=== PATIENT | male | born 1980 | race African-American/Black ===

== ENCOUNTER 2019-05-11 14:56 | Emergency (ER) | payer SELFPAY ==
[~2019-05-11] VITALS: Ht 193 cm; Wt 226.8 kg
--- NOTE | 2019-05-11 15:33 | ED Integumentary General ---
General Chief Complaint: Bite-Animal/Human/Insect Stated Complaint: POSSIBLE SPIDER BITE Nursing Triage Note: PATIENT STATES THAT HE NOTICED A BUMP THAT MIGHT BE A SPIDER BITE YESTERDAY ON THE BACK OF HIS HEAD. IT IS LARGER AND MORE PAINFUL TODAY. Source: patient Exam Limitations: no limitations History of Present Illness Date Seen by Provider: May 11, 2019 Time Seen by Provider: 15:32 Initial Comments To ER with reports of a bump to the right side of the back of his neck. He first noticed this yesterday is a small pustule, overnight it swelled to the size of nearly baseball. No known injury. Timing/Duration: week, getting worse Severity: moderate Location: generalized (right side of his neck) Possible Cause: no cause identified Associated Symptoms: denies symptoms Allergies and Home Medications Patient Home Medication List Home Medication List Reviewed: Yes Review of Systems Review of Systems Constitutional: see HPI EENTM: see HPI Respiratory: no symptoms reported Cardiovascular: no symptoms reported Genitourinary: no symptoms reported Musculoskeletal: no symptoms reported Skin: no symptoms reported Psychiatric/Neurological: No Symptoms Reported Endocrine: No Symptoms Reported Hematologic/Lymphatic: No Symptoms Reported Past Hgaqfip-Agbdor-Wjumcq Hx Patient Social History Alcohol Use: Denies Use Recreational Drug Use: No Smoking Status: Current Everyday Smoker Type Used: Cigarettes 2nd Hand Smoke Exposure: Yes Recent Foreign Travel: No Contact w/Someone Who Travel: No Recent Infectious Disease Expo: No Recent Hopitalizations: No Physical Abuse: No Sexual Abuse: No Mistreated: No Fear: No Seasonal Allergies Seasonal Allergies: No Past Medical History Surgeries: Yes (BRAIN, HIP) Respiratory: No Cardiac: Yes Aneurysm, Hypertension Neurological: No Genitourinary: No Gastrointestinal: No Musculoskeletal: No Endocrine: No HEENT: No Cancer: No Psychosocial: No Blood Disorders: No Physical Exam Vital Signs Vital Signs - First Documented 05/11/19 15:00 Temp 96.4 Pulse 109 Resp 22 B/P (MAP) 184/149 (161) Pulse Ox 98 Capillary Refill : Less Than 3 Seconds General Appearance: WD/WN, no apparent distress HEENT: PERRL/EOMI, normal ENT inspection Respiratory: no respiratory distress, no accessory muscle use Neurologic/Psychiatric: alert, normal mood/affect, oriented x 3 Skin: normal color, warm/dry Skin Problem Character: other (right neck there is area of induration approximately the size of a baseball cut in half. The overlying skin is normal in appearance without pustules or or draining wound. This area is tender to palpation.) Progress/Results/Core Measures Results/Orders My Orders Orders - ANTHONY DUMONT APRN Us Soft Tissue Head&Neck 61205 (05/11/19 15:30) Vital Signs/I&O 05/11/19 15:00 Temp 96.4 Pulse 109 Resp 22 B/P (MAP) 184/149 (161) Pulse Ox 98 Blood Pressure Mean: 161 Departure Communication (Admissions) registered respiratory technician reports no fluid collection in the area of swelling. We'll treat this as a cellulitis Impression Primary Impression: Cellulitis Qualified Codes: L03.221 - Cellulitis of neck Disposition: HOME, SELF-CARE Condition: Stable Departure-Patient Inst. Decision time for Depature: 16:01 Referrals: NO,LOCAL PHYSICIAN (PCP/Family) Primary Care Physician Patient Instructions: Cellulitis and Erysipelas (Skin Infections) Add. Discharge Instructions: 1. Warm compresses to the area antibiotics as directed return to ER for any concerns and follow up with your doctor within 1 week for recheck. All discharge instructions reviewed with patient and/or family. Voiced understanding. Scripts Hydrocodone Bit/Acetaminophen (Hydrocodone/Acetaminophen 5/325mg Tablet) 1 Tab Tab 1 EACH PO Q4-6HR PRN for PAIN-MODERATE MDD 10 for 3 Days, #10 TAB Prov: ANTHONY DUMONT APRN 05/11/19 Clindamycin HCl (Clindamycin HCl) 300 Mg Capsule 300 MG PO TID, #21 CAP Prov: ANTHONY DUMOTN APRN 05/11/19 Images Head/Face 1 - ANTHONY DUMONT APRN May 11, 2019 15:33
[2019-05-11] MEDS ORDERED: ACHD5005 PO (16:02)
[2019-05-11] MEDS ORDERED: CLIN300C11 PO (16:02)
[2019-05-11 16:14] VITALS: BP 165/120
[2019-05-11] MEDS ORDERED: CLINDAMYCIN 150 MG (CLEOCIN) CAP PO ONE (16:15)
[2019-05-11] MEDS ORDERED: HYDROcodone/APAP 5 MG/325 MG (LORTAB) TAB PO ONE (16:15)
--- NOTE | 2019-05-11 16:37 | Diagnostic Imaging Report ---
INDICATION: Swelling in the right occipital region. FINDINGS: Sonography of the area of concern shows no solid or cystic mass. No abnormal fluid collections are seen. No lymph nodes are seen. IMPRESSION: No abnormality is seen. Dictated by: Dictated on workstation # [id number]
== END 2019-05-11 16:14 | disposition home or self-care (01) ==
LOC: ER 14:58
DX: L03.221 Cellulitis of neck (principal); I10 Essential (primary) hypertension; F17.210 Nicotine dependence, cigarettes, uncomplicated
CPT/HCPCS: 76536

== ENCOUNTER → 2023-02-24 | Outpatient (CLI) | payer MEDICAID ==
[~2023-02-24] MED LIST: ACHD5005 PO; CLIN-144 PO
== END ==
LOC: CARD 09:46
PROVIDERS: ATTEND Internal Medicine Cardiovascular Disease
DX: I25.10 Atherosclerotic heart disease of native coronary artery without angina pectoris (principal); I11.9 Hypertensive heart disease without heart failure
CPT/HCPCS: 93306

== ENCOUNTER 2023-02-26 21:36 | Outpatient (CLI) | payer MEDICAID | END 2023-02-27 06:30 | disposition home or self-care (01) | LOC: SLEEP 21:36 | PROVIDERS: ATTEND Nurse Practitioner Family | DX: G47.33 Obstructive sleep apnea (adult) (pediatric) (principal); I10 Essential (primary) hypertension | CPT/HCPCS: 95811 ==